=== PATIENT | female | born 1950 | race Caucasian/White ===

== ENCOUNTER 2017-12-29 02:31 | Emergency (ER) | payer MEDICARE, MEDICAID ==
[~2017-12-29] VITALS: Ht 165.1 cm; Wt 63.6 kg
[~2017-12-29 02:31] MED LIST: CARB200T6 PO; METO25XL PO
[2017-12-29] MEDS ORDERED: CARB200T6 PO (02:49)
[2017-12-29 02:53] LABS: GLUCOSE,POINT OF CARE 137 MG/DL (70-110)
[2017-12-29] MEDS ORDERED: IBUPROFEN 600 MG TABLET PO ONE (05:15)
[2017-12-29] MEDS ORDERED: HYDROCODONE/ACETAMINOPHEN 5-325 MG TABLET PO ONE (05:15)
[2017-12-29 05:23] VITALS: BP 154/87
== END 2017-12-29 05:59 | disposition home or self-care (01) ==
LOC: EMS 02:33
DX: S82.831A Other fracture of upper and lower end of right fibula, initial encounter for closed fracture (principal); R56.9 Unspecified convulsions; W19.XXXA Unspecified fall, initial encounter; Y93.89 Activity, other specified; Y99.8 Other external cause status; Y92.89 Other specified places as the place of occurrence of the external cause
CPT/HCPCS: 29515; 99285